=== PATIENT | male | born 1970 | race Caucasian/White ===

== ENCOUNTER 2024-12-04 08:10 | Outpatient (CLI) | payer BC, SELFPAY | END 2024-12-04 08:11 | disposition home or self-care (01) | LOC: NFLDREF 12-05 03:21 | PROVIDERS: PCP Internal Medicine; Referring Provider Internal Medicine; Visit Provider Internal Medicine | DX: Z13.228 Encounter for screening for other metabolic disorders (principal); Z13.220 Encounter for screening for lipoid disorders; Z12.5 Encounter for screening for malignant neoplasm of prostate | CPT/HCPCS: 80053; 80061; G0103 ==

== ENCOUNTER 2024-12-18 12:13 | Outpatient (RCR) | payer BC, SELFPAY | END 2025-02-02 14:57 | disposition home or self-care (01) | PROVIDERS: PCP Internal Medicine; Visit Provider Internal Medicine | DX: R41.840 Attention and concentration deficit (principal); R41.3 Other amnesia; Z51.89 Encounter for other specified aftercare | CPT/HCPCS: 97166; 97535 ==